=== PATIENT | male | born 1960 | race Caucasian/White ===

== ENCOUNTER 2018-09-10 08:48 | Outpatient (REF) | payer MEDICARE, SELFPAY ==
[2018-09-10 21:41] LABS: Iron 76 ug/dL (50-175); Total Iron Binding Capacity 269 ug/dL (250-450); Transferrin Sat 28 % (20-55)
[2018-09-10 22:09] LABS: ALT 156 U/L (12-78); AST 58 U/L (15-37); Alkaline Phosphatase 123 U/L (46-116); Bilirubin, Direct 0.21 mg/dL (0.00-0.20); Bilirubin, Total 0.9 mg/dL (0.2-1.0); Creatine Kinase 98 U/L (39-308); Total Protein 7.1 g/dL (6.4-8.2)
[2018-09-10 22:20] LABS: Cholesterol 172 mg/dL (50-200); GGT 272 U/L (15-85); HDL Cholesterol 25 mg/dL (40-60); LDL CHOLESTEROL 97 mg/dL (<100); Triglyceride 333 mg/dL (30-150)
[2018-09-12 11:34] LABS: Hepatitis B Surface Ag Negative (NEGAT)
[2018-09-12 12:40] LABS: Hepatitis A IgM Ab Negative (Negative)
== END 2018-09-10 09:08 ==
LOC: LBN 08:48
PROVIDERS: PCP Nurse Practitioner Family; Visit Provider Nurse Practitioner Family
DX: K76.0 Fatty (change of) liver, not elsewhere classified (principal); R74.8 Abnormal levels of other serum enzymes
CPT/HCPCS: 80061; 80076; 82550; 83721; 87340; 82977; 83540; 83550; 86709

== ENCOUNTER 2019-01-21 10:50 | Outpatient (REF) | payer MEDICARE, SELFPAY ==
[2019-01-21 19:59] LABS: ALT 58 U/L (12-78); AST 22 U/L (15-37); Albumin 4.2 g/dL (3.4-5.0); Alkaline Phosphatase 103 U/L (46-116); Anion Gap 7.6 mmol/L (3-11); BUN 11 mg/dL (7-18); Bilirubin, Direct 0.15 mg/dL (0.00-0.20); Bilirubin, Total 0.9 mg/dL (0.2-1.0); CO2 30.4 mmol/L (21.0-32.0); CREATININE 1.07 mg/dL (0.70-1.30); Calcium 9.8 mg/dL (8.5-10.1); Chloride 100 mmol/L (98-107); Glucose 154 mg/dL (70-100); Potassium 4.9 mmol/L (3.5-5.1); Sodium 138 mmol/L (136-145); Total Protein 7.2 g/dL (6.4-8.2)
== END 2019-01-21 11:10 ==
LOC: NCHCN 10:50
PROVIDERS: PCP Nurse Practitioner Family; Visit Provider Nurse Practitioner Family
DX: E11.9 Type 2 diabetes mellitus without complications (principal); K76.0 Fatty (change of) liver, not elsewhere classified; R74.8 Abnormal levels of other serum enzymes; K21.9 Gastro-esophageal reflux disease without esophagitis; I10 Essential (primary) hypertension
CPT/HCPCS: 80048; 80076

== ENCOUNTER 2019-08-12 11:50 | Outpatient (REF) | payer MEDICARE, SELFPAY ==
[2019-08-12 21:21] LABS: Calculated LDL 89 mg/dL; Cholesterol 163 mg/dL (50-200); HDL Cholesterol 28 mg/dL (40-60); Triglyceride 230 mg/dL (30-150)
== END 2019-08-12 12:10 ==
LOC: NCHCN 11:50
PROVIDERS: PCP Nurse Practitioner Family; Visit Provider Nurse Practitioner Family
DX: E78.5 Hyperlipidemia, unspecified (principal); E11.9 Type 2 diabetes mellitus without complications
CPT/HCPCS: 80061

== ENCOUNTER 2019-09-23 10:38 | Outpatient (REF) | payer MEDICARE, SELFPAY ==
[2019-09-23 22:12] LABS: ALT 39 U/L (16-63); AST 16 U/L (15-37); Albumin 4.2 g/dL (3.4-5.0); Alkaline Phosphatase 80 U/L (46-116); Bilirubin, Direct 0.14 mg/dL (0.00-0.20); Bilirubin, Total 0.6 mg/dL (0.2-1.0); Total Protein 7.3 g/dL (6.4-8.2)
[2019-09-23 22:57] LABS: Hemoglobin A1C 5.8 % (4.5-6.2)
== END 2019-09-23 10:58 ==
LOC: NCHCN 10:38
PROVIDERS: PCP Nurse Practitioner Family; Visit Provider Nurse Practitioner Family
DX: I10 Essential (primary) hypertension (principal); E11.9 Type 2 diabetes mellitus without complications; K76.0 Fatty (change of) liver, not elsewhere classified; R74.0 Nonspecific elevation of levels of transaminase and lactic acid dehydrogenase [LDH]
CPT/HCPCS: 80076; 83036

== ENCOUNTER 2019-10-08 01:11 | Outpatient (CLI) | payer MEDICARE, SELFPAY ==
--- NOTE | 2019-10-08 13:40 | DI.CTLCSR_ITS ---
EXAM: CT CHEST LUNG CANCER SCREEN CLINICAL HISTORY: CIGARETTE SMOKER, F17.210, [id number] HISTORY, CURRENT SMOKER TECHNIQUE: Low-dose lung noncontrast COMPARISON: No exams were available for comparison FINDINGS: The heart size is normal. Mild aortic and coronary artery calcifications are seen. There are no ple ural or pericardial effusions. There is no evidence of adenopathy. No pulmonary nodules are identif ied. There are no visible emphysematous or fibrotic changes. There is no evidence of bronchiectasis . Gallstones are noted. There is mild bilateral gynecomastia. Degenerative changes are seen in the spine. IMPRESSION: Lung rads category 1, negative. Annual low-dose screening CT is recommended. Lung RADS Cat 1 - Negative: No nodules and definitely benign nodules
== END 2019-10-08 01:31 ==
PROVIDERS: PCP Nurse Practitioner Family; Visit Provider Nurse Practitioner Family
DX: Z12.2 Encounter for screening for malignant neoplasm of respiratory organs (principal); F17.210 Nicotine dependence, cigarettes, uncomplicated; N62 Hypertrophy of breast
CPT/HCPCS: G0297

== ENCOUNTER 2019-11-25 08:49 | Outpatient (REF) | payer MEDICARE, SELFPAY ==
[2019-11-25 21:55] LABS: Calculated LDL 118 mg/dL (<100); Cholesterol 201 mg/dL (<200); HDL Cholesterol 25 mg/dL (40-60); Triglyceride 290 mg/dL (<150)
== END 2019-11-25 09:09 ==
LOC: NCHCN 08:49
PROVIDERS: PCP Nurse Practitioner Family; Visit Provider Nurse Practitioner Family
DX: E78.5 Hyperlipidemia, unspecified (principal); E11.9 Type 2 diabetes mellitus without complications; I10 Essential (primary) hypertension; R74.8 Abnormal levels of other serum enzymes
CPT/HCPCS: 80061

== ENCOUNTER 2019-12-02 11:40 | Outpatient (REF) | payer MEDICARE, SELFPAY ==
[2019-12-02 21:50] LABS: ALT 35 U/L (16-63); AST 13 U/L (15-37); Albumin 4.3 g/dL (3.4-5.0); Alkaline Phosphatase 71 U/L (46-116); Anion Gap 9.1 mmol/L (3-11); BUN 8 mg/dL (7-18); Bilirubin, Direct 0.13 mg/dL (0.00-0.20); Bilirubin, Total 0.7 mg/dL (0.2-1.0); CO2 29.9 mmol/L (21.0-32.0); CREATININE 1.08 mg/dL (0.70-1.30); Calcium 8.9 mg/dL (8.5-10.1); Chloride 101 mmol/L (98-107); Glucose 83 mg/dL (74-106); Potassium 3.9 mmol/L (3.5-5.1); Sodium 140 mmol/L (136-145); Total Protein 7.1 g/dL (6.4-8.2)
== END 2019-12-02 12:00 ==
LOC: NCHCN 11:40
PROVIDERS: PCP Nurse Practitioner Family; Visit Provider Nurse Practitioner Family
DX: I10 Essential (primary) hypertension (principal); K76.0 Fatty (change of) liver, not elsewhere classified
CPT/HCPCS: 80048; 80076

== ENCOUNTER 2020-01-13 10:49 | Outpatient (REF) | payer MEDICARE, SELFPAY ==
[2020-01-13 19:02] LABS: ALT 41 U/L (16-63); AST 20 U/L (15-37)
[2020-01-13 19:20] LABS: Calculated LDL 109 mg/dL (<100); Cholesterol 202 mg/dL (<200); HDL Cholesterol 27 mg/dL (40-60); Triglyceride 334 mg/dL (<150)
[2020-01-13 19:24] LABS: Bilirubin Negative (Negative); Blood Negative (Negative); Clarity Clear (Clear); Glucose Negative (Negative); Ketones Negative (Negative); Leukocyte Esterase Negative (Negative); Nitrite Negative (Negative); Urobilinogen 0.2 EU/dL (Up TO 0.2)
[2020-01-13 19:37] LABS: Bacteria Rare HPF (Negative); Crystals Negative HPF (Negative); Epithelial Cells Negative HPF (Negative); Other Cells Negative (Negative); RBC Negative HPF (0-2); WBC 0-2 HPF (0-5)
[2020-01-13 19:38] LABS: C & S Indicated? No; Casts Negative LPF (Negative); Mucus Trace (Negative)
== END 2020-01-13 11:09 ==
LOC: NCHCN 10:49
PROVIDERS: PCP Nurse Practitioner Family; Visit Provider Nurse Practitioner Family
DX: E78.5 Hyperlipidemia, unspecified (principal); R10.9 Unspecified abdominal pain
CPT/HCPCS: 80061; 81003; 81015; 84450; 84460

== ENCOUNTER → 2020-01-17 03:28 | Outpatient (CLI) | payer MEDICARE, SELFPAY ==
--- NOTE | 2020-01-17 08:45 | DI.CT_ITS ---
EXAM: CT RENAL COLIC WO CLINICAL HISTORY: ABD PAIN, R10.9 COMPARISON: ABDOMEN ULTRASOUND (P) from 02/12/2018 CT CHEST LUNG CANCER SCREEN from 10/08/2019 FINDINGS: CT examination of the abdomen and pelvis was performed without contrast administration. Images obtai roque through the lung bases are unremarkable. The liver appears mildly enlarged with a questionably n odular contour. There are prominent upper abdominal collateral veins raising the possibility cirrhos is and portal hypertension. Note is made of cholelithiasis. No biliary dilatation. Pancreas is unremarkable by noncontrast crit eria. Adrenals appear normal bilaterally. There is a 1 millimeter in diameter nonobstructing left renal ca lculus. No additional urinary tract calcification. No evidence of hydronephrosis. No significant abdominal wall hernia seen. No significant abdominal or pelvic adenopathy. There is a 30 millimeter in diameter abdominal aortic aneurysm, infrarenal. Common iliac arteries ar e ectatic bilaterally at 19 millimeters. Normal appearance of the appendix. No evidence of bowel obstruction. There is a question of a focal area of wall thickening at the hepatic flexure of the colon, findings are indeterminate but the poss ibility of a mucosal mass at this site would have to be raised and additional evaluation with colonos copy is recommended. IMPRESSION: 1. Tiny nonobstructing left renal calculus. No other urinary tract abnormality seen. 2. Probable cirrhosis and portal venous hypertension. 3. Cholelithiasis. 4. 30 millimeter in diameter abdominal aortic aneurysm. 5. Hepatic flexure colonic wall thickening, mass not excluded, correlation with colonoscopy recommen ded.
== END ==
PROVIDERS: PCP Nurse Practitioner Family; Visit Provider Nurse Practitioner Family
DX: R10.9 Unspecified abdominal pain (principal); N20.0 Calculus of kidney; K76.89 Other specified diseases of liver; K80.20 Calculus of gallbladder without cholecystitis without obstruction; I71.4 Abdominal aortic aneurysm, without rupture; K63.89 Other specified diseases of intestine
CPT/HCPCS: 74176

== ENCOUNTER 2020-03-20 12:44 | Outpatient (REF) | payer MEDICARE, SELFPAY ==
[2020-03-20 20:31] LABS: ALT 45 U/L (16-63); AST 19 U/L (15-37); Albumin 4.4 g/dL (3.4-5.0); Alkaline Phosphatase 74 U/L (46-116); Bilirubin, Total 0.7 mg/dL (0.2-1.0); Calculated LDL 88 mg/dL (<100); Cholesterol 161 mg/dL (<200); HDL Cholesterol 27 mg/dL (40-60); Total Protein 7.5 g/dL (6.4-8.2); Triglyceride 230 mg/dL (<150)
[2020-03-20 20:46] LABS: Bilirubin, Direct 0.14 mg/dL (0.00-0.20); Creatine Kinase 69 U/L (39-308)
== END 2020-03-20 13:04 ==
LOC: NCHCN 12:44
PROVIDERS: PCP Nurse Practitioner Family; Visit Provider Nurse Practitioner Family
DX: E78.5 Hyperlipidemia, unspecified (principal); K76.0 Fatty (change of) liver, not elsewhere classified
CPT/HCPCS: 80061; 80076; 82550

== ENCOUNTER 2020-07-01 08:01 | Outpatient (REF) | payer MEDICARE, SELFPAY ==
[2020-07-01 23:47] LABS: ALT 43 U/L (16-63); AST 22 U/L (15-37); Anion Gap 8.4 mmol/L (3-11); BUN 10 mg/dL (7-18); CO2 27.6 mmol/L (21.0-32.0); CREATININE 1.04 mg/dL (0.70-1.30); Calcium 9.1 mg/dL (8.5-10.1); Calculated LDL 96 mg/dL (<100); Chloride 105 mmol/L (98-107); Cholesterol 163 mg/dL (<200); Glucose 121 mg/dL (74-106); HDL Cholesterol 27 mg/dL (40-60); Potassium 4.3 mmol/L (3.5-5.1); Sodium 141 mmol/L (136-145); Triglyceride 203 mg/dL (<150)
== END 2020-07-01 08:21 ==
LOC: NCHCN 08:01
PROVIDERS: PCP Nurse Practitioner Family; Visit Provider Nurse Practitioner Family
DX: E78.5 Hyperlipidemia, unspecified (principal); I10 Essential (primary) hypertension
CPT/HCPCS: 80048; 80061; 84450; 84460

== ENCOUNTER 2020-09-30 10:55 | Outpatient (REF) | payer MEDICARE, SELFPAY ==
[2020-09-30 21:02] LABS: ALT 38 U/L (16-63); AST 21 U/L (15-37); Albumin 4.2 g/dL (3.4-5.0); Alkaline Phosphatase 70 U/L (46-116); Bilirubin, Direct 0.14 mg/dL (0.00-0.20); Bilirubin, Total 0.6 mg/dL (0.2-1.0); Total Protein 7.1 g/dL (6.4-8.2)
[2020-10-01 04:42] LABS: Vitamin D 25 Total 46.9 ng/ml (30-100)
== END 2020-09-30 11:15 ==
LOC: NCHCN 10:55
PROVIDERS: PCP Nurse Practitioner Family; Visit Provider Nurse Practitioner Family
DX: E11.9 Type 2 diabetes mellitus without complications (principal); R74.8 Abnormal levels of other serum enzymes; K76.9 Liver disease, unspecified
CPT/HCPCS: 80076; 82306; 84443

== ENCOUNTER 2020-11-04 05:30 | Outpatient (CLI) | payer MEDICARE, SELFPAY ==
--- NOTE | 2020-11-20 14:20 | W.ZIOMONITOR ---
Date of service: 11/20/20 Time of Service: 14:20 14 Day Business Development Sales Executive Referring Provider:: Nneka Chavarria Indications:: Palpitations Note: This is a 14-day Holter monitor reportedly ordered for symptoms of palpitations Baseline rhythm is sinus with a first-degree AV block average heart rate was 66 bpm. Minimum was 44 and maximum 106 There were rare ventricular ectopic beats There were occasional to frequent atrial premature beats comprising 1.44% of total There were several brief episodes of Mobitz 1 second-degree AV block (Wenckebach), all asymptomatic There were no pauses greater than 3 seconds, no atrial fibrillation Patient symptoms did not correspond to any dysrhythmia
== END 2020-11-04 05:50 ==
PROVIDERS: PCP Nurse Practitioner Family; Visit Provider Nurse Practitioner Family
DX: R00.2 Palpitations (principal)
CPT/HCPCS: 93246

== ENCOUNTER 2020-11-20 10:48 | Outpatient (CLI) | payer MEDICARE, SELFPAY | END 2020-11-20 11:08 | PROVIDERS: PCP Nurse Practitioner Family; Referring Provider Nurse Practitioner Family; Visit Provider Internal Medicine Cardiovascular Disease | DX: R00.2 Palpitations (principal); I44.0 Atrioventricular block, first degree; I49.1 Atrial premature depolarization | CPT/HCPCS: 93248 ==

== ENCOUNTER 2020-12-30 15:19 | Outpatient (REF) | payer MEDICARE, SELFPAY ==
[2020-12-30 15:53] LABS: Anion Gap 7.6 mmol/L (3-11); BUN 8 mg/dL (7-18); CO2 27.4 mmol/L (21.0-32.0); CREATININE 1.1 mg/dL (0.70-1.30); Calcium 9.1 mg/dL (8.5-10.1); Calculated LDL 74 mg/dL (<100); Chloride 104 mmol/L (98-107); Cholesterol 133 mg/dL (<200); Glucose 112 mg/dL (74-106); HDL Cholesterol 34 mg/dL (40-60); Potassium 4.4 mmol/L (3.5-5.1); Sodium 139 mmol/L (136-145); Triglyceride 127 mg/dL (<150)
== END 2020-12-30 15:20 | disposition home or self-care (01) ==
LOC: NCHCN 15:19
PROVIDERS: PCP Nurse Practitioner Family; Visit Provider Nurse Practitioner Family
DX: I10 Essential (primary) hypertension (principal); R78.5 Finding of other psychotropic drug in blood; Z79.899 Other long term (current) drug therapy
CPT/HCPCS: 80048; 80061

== ENCOUNTER → 2021-01-11 11:00 | Outpatient (BNVA) | payer MEDICARE, SELFPAY | PROVIDERS: PCP Nurse Practitioner Family; Referring Provider Nurse Practitioner Family; Visit Provider Internal Medicine Cardiovascular Disease | DX: R00.2 Palpitations (principal); F41.9 Anxiety disorder, unspecified | CPT/HCPCS: 93005; 99203 ==

== ENCOUNTER 2021-01-11 11:13 | Outpatient (CLI) | payer MEDICARE, SELFPAY ==
--- NOTE | 2021-01-11 11:00 | RT.EKG_ITS ---
APPROVED REPORT Exam: Resting ECG Patient Location: O HR:70 bpm ECG Measurements Heart Rate 70 AXIS GA 289 P 34 QRSd 87 QRS 52 QT 388 T 38 QTc 419 Conclusion Sinus rhythm...normal P axis, V-rate 50- 99 Prolonged GA interval...GA >220, V-rate 50- 90
== END 2021-01-11 11:14 | disposition home or self-care (01) ==
LOC: DI.CARD 11:13
PROVIDERS: PCP Nurse Practitioner Family; Visit Provider Internal Medicine Cardiovascular Disease
DX: R00.2 Palpitations (principal)
CPT/HCPCS: 93010

== ENCOUNTER → 2021-10-14 01:41 | Outpatient (CLI) | payer MEDICARE, SELFPAY ==
--- NOTE | 2021-10-14 08:30 | DI.RAD_ITS ---
Exam(s) XR LUMBAR SPINE COMPLETE EXAM: XR LUMBAR SPINE COMPLETE CLINICAL HISTORY: ACUTE LOW BACK PAIN M54.5. TECHNIQUE: 2D digital imaging was performed. COMPARISON: No exams were available for comparison FINDINGS: There is no evidence of compression fracture or listhesis. No pars defects. There is disc space carlos enrique rowing at L5-S1 level, chronic appearance. Mild disc space narrowing at L4-5 and L3-4. No osseous l esions. Minimal facet findings. Calcification in the abdominal aorta noted. No scoliosis. IMPRESSION: Disc disease as described above, most evident at L5-S1 level. DATA REPOSITORY: RADIATION DOSE DELIVERED:
--- NOTE | 2021-10-14 08:30 | DI.RAD_ITS ---
Exam(s) XR SACROILIAC JOINTS EXAM: XR SACROILIAC JOINTS CLINICAL HISTORY: ACUTE LOW BACK PAIN M54.5. TECHNIQUE: 2D digital imaging was performed. COMPARISON: CR XR LUMBAR SPINE COMPLETE from 10/14/2021 FINDINGS: Sacroiliac joints appear [id number]. Minimal degenerative changes. No erosions. No ank ylosis. No osseous lesions in the sacrum. Chronic advanced disc space narrowing is evident at L5-S1 level. Milder disc space narrowing at L3-4 and L4-5. No osseous lesions. Vascular calcification in the abdominal aorta and iliac arteries is noted. IMPRESSION: DATA REPOSITORY: RADIATION DOSE DELIVERED:
== END ==
PROVIDERS: PCP Nurse Practitioner Family; Visit Provider Nurse Practitioner Family
DX: M54.59 Other low back pain (principal); M51.37 Other intervertebral disc degeneration, lumbosacral region
CPT/HCPCS: 72110; 72202

== ENCOUNTER → 2021-12-14 00:43 | Outpatient (CLI) | payer OTHER, SELFPAY ==
--- NOTE | 2021-12-14 08:40 | DI.CTLCSR_ITS ---
Exam(s) CT CHEST LUNG CANCER SCREEN EXAM: CT CHEST LUNG CANCER SCREEN CLINICAL HISTORY: SCREENING FOR LUNG CA, CIGARETTE SMOKER, F17.210. TECHNIQUE: Imaging Protocol: Low Dose Technique CONTRAST MATERIAL: None COMPARISON: CT CT CHEST LUNG CANCER SCREEN from 10/08/2019 FINDINGS: CHEST: LUNGS: There are no ominous pulmonary nodules. There are no confluent infiltrates. No pleural effusi ons. Mild mucus is noted in the central airways. MEDIASTINUM: There is no obvious hilar nor mediastinal adenopathy. CARDIAC: Heart size is normal. There is no pericardial effusion.Caliber of the thoracic aorta is wit hin normal limits. Mild coronary artery calcification. OTHER: No obvious adrenal masses. Gallbladder again noted to be surgically absent. OSSEOUS: No significant osseous lesions.. IMPRESSION: 1. No significant pulmonary nodules. No pleural effusions. 2. No obvious intrathoracic adenopathy. 3. Lung RADS Cat 1 - Negative: No nodules and definitely benign nodules Lung-RADS 1.0 CATEGORIES: Category 0 - Prior chest CT exam(s) being located for comparison. Category 1 - Annual screening in 12 months. No nodules or definitely benign nodules. Category 2 - Annual screening in 12 months. Benign appearance. Nodules with low likelihood of becomin g active cancer. Category 3 - 6-month follow-up. Probably benign. Short-term follow-up suggested. Nodules with low lik elihood of becoming active cancer. Category 4A - 3-month follow-up and CT/PET if >8 mm in size. Suspicious finding. Findings which requi re additional testing. Category 4B - Findings which require additional testing and tissue sampling. Category 4X - Category 3 or 4 nodules with additional features or imaging findings that increases the suspicion of malignancy. Modifier S- Potentially clinically significant findings (non lung cancer) RADIATION DOSE DELIVERED: 85.99mGy.cm Total DLP CTDIvol DATA REPOSITORY: All CT scans at this facility are submitted to the National Radiology Data Registry (NRDR) Dose Index Registry (DIR) with the [employer] (ACR). RADIATION OPTIMIZATION: All CT scans at this facility use at least one of these dose optimization te chniques: automated exposure control; mA and/or kV adjustment per patient size (includes targeted exa ms where dose is matched to clinical indication); or iterative reconstruction.
== END ==
PROVIDERS: PCP Nurse Practitioner Family; Visit Provider Nurse Practitioner Family
DX: Z12.2 Encounter for screening for malignant neoplasm of respiratory organs (principal); F17.210 Nicotine dependence, cigarettes, uncomplicated
CPT/HCPCS: 71271

== ENCOUNTER 2022-01-10 12:43 | Outpatient (REF) | payer OTHER, SELFPAY ==
[2022-01-10 13:25] LABS: HCT 44.5 % (40.0-50.0); HGB 14.5 g/dL (13.5-17.5); MCH 30.7 pg (27.0-33.0); MCHC 32.6 % (32.0-36.0); MCV 94.3 fL (80-95); MPV 9.8 fL (8.0-11.0); Platelet Count 295 10^3/uL (130-400); RBC 4.72 10^6/uL (4.36-5.78); RDW 12.5 % (11.8-14.1); RDW-SD 43.8 fL; WBC 15.61 10^3/uL (4.4-10.8)
[2022-01-10 13:41] LABS: ALT 46 U/L (16-63); AST 21 U/L (15-37); Anion Gap 10.7 mmol/L (3-11); BUN 13 mg/dL (7-18); CO2 25.3 mmol/L (21.0-32.0); CREATININE 1.3 mg/dL (0.70-1.30); Calculated LDL 109 mg/dL (<100); Chloride 102 mmol/L (98-107); Cholesterol 187 mg/dL (<200); Estimated GFR 55.94 (mL/min/1.73m2); Glucose 117 mg/dL (74-106); HDL Cholesterol 29 mg/dL (40-60); Sodium 138 mmol/L (136-145); Triglyceride 249 mg/dL (<150)
[2022-01-10 13:53] LABS: Creatine Kinase 100 U/L (39-308)
== END 2022-01-10 12:44 | disposition home or self-care (01) ==
LOC: NCHCN 12:43
PROVIDERS: PCP Nurse Practitioner Family; Visit Provider Nurse Practitioner Family
DX: E11.9 Type 2 diabetes mellitus without complications (principal); I10 Essential (primary) hypertension; E78.5 Hyperlipidemia, unspecified; K21.9 Gastro-esophageal reflux disease without esophagitis; F41.1 Generalized anxiety disorder; Z51.81 Encounter for therapeutic drug level monitoring
CPT/HCPCS: 80048; 80061; 82550; 85027; 83036; 84450; 84460

== ENCOUNTER 2022-03-16 09:24 | Outpatient (REF) | payer OTHER, SELFPAY ==
[2022-03-16 17:23] LABS: Abs Immature Grans 0.09 10^3/uL (0.0-0.06); Absolute Basophil Count 0.08 10^3/uL (0.0-0.2); Absolute Eosinophil Count 0.48 10^3/uL (0.0-0.7); Absolute Lymphocyte Count 4.75 10^3/uL (1.2-3.4); Basophils % 0.6; Eosinophils % 3.4; HCT 43.2 % (40.0-50.0); Immature Grans % 0.6; Lymphocytes % 33.7; MCH 30.7 pg (27.0-33.0); MCHC 32.4 % (32.0-36.0); MCV 95 fL (80-95); MPV 9.9 fL (8.0-11.0); Monocytes % 8.5; Neutrophils % 53.2; Platelet Count 289 10^3/uL (130-400); RBC 4.56 10^6/uL (4.36-5.78); RDW 12.8 % (11.8-14.1); RDW-SD 44.8 fL; WBC 14.09 10^3/uL (4.4-10.8)
== END 2022-03-16 09:25 | disposition home or self-care (01) ==
LOC: NCHCN 09:24
PROVIDERS: PCP Nurse Practitioner Family; Visit Provider Nurse Practitioner Family
DX: R89.8 Other abnormal findings in specimens from other organs, systems and tissues
CPT/HCPCS: 85025

== ENCOUNTER 2023-01-18 11:50 | Outpatient (REF) | payer OTHER, SELFPAY ==
[2023-01-19 16:25] LABS: ALT 30 U/L (16-63); AST 15 U/L (15-37); Albumin 4.1 g/dL (3.4-5.0); Alkaline Phosphatase 79 U/L (46-116); Anion Gap 9.2 mmol/L (3-11); BUN 13 mg/dL (7-18); Bilirubin, Total 0.5 mg/dL (0.2-1.0); CO2 25.8 mmol/L (21.0-32.0); CREATININE 1.4 mg/dL (0.70-1.30); Calcium 9.2 mg/dL (8.5-10.1); Calculated LDL 96 mg/dL (<100); Chloride 100 mmol/L (98-107); Cholesterol 187 mg/dL (<200); Estimated GFR 56.48 (mL/min/1.73m2); Glucose 136 mg/dL (74-106); HDL Cholesterol 33 mg/dL (40-60); Potassium 4.1 mmol/L (3.5-5.1); Sodium 135 mmol/L (136-145); Total Protein 7.4 g/dL (6.4-8.2); Triglyceride 293 mg/dL (<150)
[2023-01-19 16:51] LABS: Creatine Kinase 73 U/L (39-308)
== END 2023-01-18 11:51 | disposition home or self-care (01) ==
LOC: NCHCN 11:50
PROVIDERS: PCP Nurse Practitioner Family; Visit Provider Nurse Practitioner Family
DX: E11.9 Type 2 diabetes mellitus without complications (principal); E78.5 Hyperlipidemia, unspecified
CPT/HCPCS: 80053; 80061; 82550; 83036

== ENCOUNTER 2023-02-06 00:18 | Outpatient (CLI) | payer OTHER, SELFPAY ==
--- NOTE | 2023-02-06 | DI.CTLCSR_ITS ---
Exam(s) CT CHEST LUNG CANCER SCREEN EXAM: CT CHEST LUNG CANCER SCREEN CLINICAL HISTORY: SMOKER F17.210 SCREENING FOR LUNG CANCER TECHNIQUE: Imaging Protocol: Axial computed tomography images with coronal and sagittal reformatted images were created and reviewed COMPARISON: CT CT CHEST LUNG CANCER SCREEN from 12/14/2021 FINDINGS: Tracheobronchial tree: Patent where visualized. Pulmonary parenchyma: No consolidation or dominant measurable mass. No architectural distortion. Lung Nodules: None. Mediastinum and Chanda: No dominant adenopathy or fluid collection. The esophagus is unremarkable. Thyroid gland: Unremarkable. Lymph nodes: Unremarkable. Pleura: No effusion or pneumothorax. Heart: The heart is not dilated. Moderate coronary artery calcification is present. No pericardial e ffusion. Aorta: Thoracic aorta non-dilated.Atherosclerosis is present. Upper abdomen: Cholelithiasis. No biliary ductal dilatation. Soft Tissues: Unremarkable. Bones: Within normal limits. IMPRESSION: 1. No pulmonary nodules. 2. Cholelithiasis. Lung RADS Cat 1 - Negative: No nodules and definitely benign nodules Lung-RADS 1.0 CATEGORIES: Category 0 - Prior chest CT exam(s) being located for comparison. Category 1 - Annual screening in 12 months. No nodules or definitely benign nodules. Category 2 - Annual screening in 12 months. Benign appearance. Nodules with low likelihood of becomin g active cancer. Category 3 - 6-month follow-up. Probably benign. Short-term follow-up suggested. Nodules with low lik elihood of becoming active cancer. Category 4A - 3-month follow-up and CT/PET if >8 mm in size. Suspicious finding. Findings which requi re additional testing. Category 4B - Findings which require additional testing and tissue sampling. Suspicious finding. Category 4X - Category 3 or 4 nodules with additional features or imaging findings that increases the suspicion of malignancy. Modifier S- Potentially clinically significant finding. (Non lung cancer) RADIATION DOSE DELIVERED: 99.19mGy.cm Total DLP 99.19mGy.cmTotal DLP DATA REPOSITORY: All CT scans at this facility are submitted to the National Radiology Data Registry (NRDR) Dose Index Registry (DIR) with the [employer] (ACR). RADIATION OPTIMIZATION: All CT scans at this facility use at least one of these dose optimization te chniques: automated exposure control; mA and/or kV adjustment per patient size (includes targeted exa ms where dose is matched to clinical indication); or iterative reconstruction.
== END 2023-02-06 00:38 ==
LOC: DI 00:18
PROVIDERS: PCP Nurse Practitioner Family; Visit Provider Nurse Practitioner Family
DX: F17.210 Nicotine dependence, cigarettes, uncomplicated (principal); Z12.2 Encounter for screening for malignant neoplasm of respiratory organs; K80.20 Calculus of gallbladder without cholecystitis without obstruction
CPT/HCPCS: 71271

== ENCOUNTER 2023-02-14 17:01 | Outpatient (REF) | payer OTHER, SELFPAY ==
[2023-02-14 16:05] LABS: HCT 44.2 % (40.0-50.0); HGB 15.2 g/dL (13.5-17.5); MCH 30.4 pg (27.0-33.0); MCHC 34.4 % (32.0-36.0); MCV 88 fL (80-95); MPV 9.3 fL (8.0-11.0); Platelet Count 281 10^3/uL (130-400); RDW 12.6 % (11.8-14.1); RDW-SD 40.6 fL; WBC 14.61 10^3/uL (4.4-10.8)
[2023-02-14 16:18] LABS: ALT 28 U/L (16-63); AST 23 U/L (15-37); Albumin 4.2 g/dL (3.4-5.0); Alkaline Phosphatase 71 U/L (46-116); Anion Gap 7.9 mmol/L (3-11); BUN 15 mg/dL (7-18); Bilirubin, Total 1.1 mg/dL (0.2-1.0); CO2 28.1 mmol/L (21.0-32.0); CREATININE 1.4 mg/dL (0.70-1.30); Chloride 103 mmol/L (98-107); Estimated GFR 56.48 (mL/min/1.73m2); Glucose 130 mg/dL (74-106); Lipase 46 U/L (16-77); Potassium 3.7 mmol/L (3.5-5.1); Sodium 139 mmol/L (136-145); Total Protein 7.8 g/dL (6.4-8.2)
[2023-02-14 16:31] LABS: Calcium 9.6 mg/dL (8.5-10.1)
== END 2023-02-14 17:02 | disposition home or self-care (01) ==
LOC: NCHCN 17:01
PROVIDERS: PCP Nurse Practitioner Family; Visit Provider Nurse Practitioner Family
DX: R10.13 Epigastric pain (principal); K62.5 Hemorrhage of anus and rectum
CPT/HCPCS: 80053; 83690; 85027

== ENCOUNTER → 2023-02-27 09:32 | Outpatient (BNVA) | payer OTHER, SELFPAY | PROVIDERS: PCP Nurse Practitioner Family; Referring Provider Nurse Practitioner Family; Visit Provider Surgery | DX: K21.9 Gastro-esophageal reflux disease without esophagitis (principal); R13.10 Dysphagia, unspecified; K62.5 Hemorrhage of anus and rectum | CPT/HCPCS: 99215; 99243 ==

== ENCOUNTER 2023-04-03 06:09 | Day surgery (SDC) | payer OTHER, SELFPAY ==
--- NOTE | 2023-03-27 19:27 | PDOC.DSDIS_ITS ---
Discharge Plan Disposition Patient Disposition: Home Condition: Good Discharge Details Reason For Visit: sarthak hurtado Attending Provider: Teresa Real Primary Care Provider: Nneka Chavarria Home Meds and New Rx's Prescriptions: Continued Digestive Advantage Advanced 10 billion cell capsule 10 cell PO DAILY apple cider vinegar 600 mg capsule 600 mg PO DAILY atorvastatin [Lipitor] 80 mg tablet 80 mg PO DAILY fenofibrate nanocrystallized [Tricor] 48 mg tablet 48 mg PO DAILY clonidine HCl 0.1 mg tablet 0.1 mg PO BID alprazolam 0.5 mg tablet 0.5 mg PO TID fluoxetine 40 mg capsule 40 mg PO DAILY lurasidone [Latuda] 60 mg tablet 60 mg PO DAILY Rx Instructions: must administer with food (at least 350 calories) esomeprazole magnesium [Nexium] 40 mg capsule,delayed release(DR/EC) 40 mg PO DAILY Discontinued polyethylene glycol 3350 17 gram/dose powder 238 g PO ONCE Qty: 238 0RF Rx Instructions: take per colonoscopy instructions bisacodyl [Dulcolax (bisacodyl)] 5 mg tablet,delayed release (DR/EC) 5 mg PO ONCE Qty: 4 0RF Rx Instructions: take per colonoscopy instructions Discharge Instructions Additional Instructions: DSU Colonoscopy Post- Op Instructions Instructions for Everyone who is given Anesthesia: For your safety, please do the following for the next twenty-four (24) hours: *Do Not operate a motor vehicle (car, truck, motorcycle, etc.) *Do Not drink alcoholic beverages or use any recreational drugs for the first 24 hours or while taking pain medications. The medications in your body may have a reaction that can be dangerous. *Do Not make any important decisions or sign any important papers. Findings: Follow up: 1. No lifting over 20 pounds or strenuous activity for the first 24 hours after your procedure. After 24 hours there are no restrictions on your activity but you may feel fatigued for a few days. 2. After you arrive home you may have a light meal and return to your normal diet as you can tolerate it without feeling sick to your stomach. 3. You may have a bloated, gaseous feeling in your belly (abdomen) after a colonoscopy. Passing gas and belching will help. Walking or lying down on your left side with your knees flexed may relieve the discomfort. -Symptoms you may experience during the next 24 hours: ?1. Mild abdominal pain or excessive gas or a bloated feeling which improves with rest, liquids, eating? slightly, and walking as tolerated. 2. Drowsiness and/or forgetfulness because of the medications you were given. ?3. Throat numbness for about 1 hour. 4. A sore throat which you can treat with throat lozenges or by gargling with salt water 4-5 times a day. 5. Redness at the site of your IV which you can treat with warm compresses. SPECIAL INSTRUCTIONS: 1. You may resume your previous diet in one hour. We recommend a light meal to start, then progress as tolerated. 2. Restart regular medications in one hour. 3. No aspirin or non-steroidal containing medication for three days. 4. No lifting over 20 pounds or strenuous activity for the first 24 hours after your procedure. After 24 hours there are no restrictions on your activity, but you may feel fatigued for a few days. Call the office at [phone] (Office) or [phone] (Hospital) right away if you notice any of the following: a.Vomiting of blood or ?coffee ground stools?. b.Rectal bleeding 1Tbsp, blood clots or continuous bleeding. c.Severe belly (abdominal) pain. d.A hard distended belly (abdomen) and an inability to pass gas. 4. Please don?t expect to have a normal BM (bowel movement) for 2-3 days after your procedure. 5. If there are questions regarding the findings of your procedure, please contact your doctor 6. If you are unable to contact your doctor with a problem, contact the hospital at [phone]. 7. Continue all your regular medications unless directed otherwise. I understand the above instructions and have no questions. Signature of Patient or Adult Escort Name of Responsible Adult Escort Signature of Nurse Date/Time Activity:: see above Diet:: see above Discharge Orders Discharge Orders: Discharge Order (Routine); Ordered 03/28/23 Ordered By: Teresa Real DS: Diagnosis Discharge Diagnosis (1) Epigastric pain: Status: Acute Asessment and Plan: Patient is seen and examined after they are endoscopy.? Patient has minimal sore throat.? They have been able to tolerate liquids.? They do not have any nausea vomiting.? They are not having any chest pain or shortness of breath.? They have been able to pass gas and are not having any abdominal pain or distention.? They have not vomited any blood.? The vital signs have been stable-see nursing notes. We discussed findings on their endoscopy. We reviewed the importance of lifestyle modification-see discharge instructions We reviewed any new medications that the patient may be prescribed-see discharge instructions Patient will either be sent a letter with the biopsy results or follow-up in the office-see discharge instructions. Patient was given explicit instructions to follow-up regarding post endoscopy- refer to discharge Patient verbalized understanding and discharged in stable and satisfactory condition.? See nursing notes. (2) Rectal bleeding: Status: Acute (3) GERD (gastroesophageal reflux disease): Status: Chronic (4) H/O: HTN (hypertension): (5) History of alcoholism: (6) Hyperlipidemia: (7) Mobitz type 1 second degree AV block: (8) Steatosis of liver: (9) Type 2 diabetes mellitus:
[2023-04-03 06:23] VITALS: BP 140/75; PULSE 76; RESP 18; TEMP 36.3; O2SAT 98
[2023-04-03] MEDS: Lactated Ringers 1,000 ML 80 ML IV (06:39)
--- NOTE | 2023-04-03 07:04 | W.ANESPRE ---
General Info Date of Service Date Performed: 04/03/23 Height: 6 ft Weight: 99.79 kg Body Mass Index (BMI): 29.8 Surgical Procedure: Operation Date: 04/03/23 07:40 Proposed Procedure Side Surgeon p Colonoscopy/Gastroscopy Edinson Patel MD s Internal Hemorrhoid Banding Edinson Patel MD Actual Procedure Side Surgeon p Colonoscopy/Gastroscopy Edinson Patel MD s Internal Hemorrhoid Banding Edinson Patel MD Pre-Op Diagnosis Post-Op Diagnosis stoomach and colon stope Meds Allergies and Home Medications Allergies Allergy/AdvReac Type Severity Reaction Status Date / Time brexpiprazole [From Rexulti] Allergy Severe Psychosis Verified 04/03/23 07:22 Glucophage XR Allergy Intermediate Uncoded 04/03/23 06:19 Home Medication Medication Instructions Recorded alprazolam 0.5 mg tablet 0.5 mg PO TID 12/02/20 atorvastatin 80 mg tablet (Lipitor) 80 mg PO DAILY 12/02/20 clonidine HCl 0.1 mg tablet 0.1 mg PO BID 12/02/20 fenofibrate nanocrystallized 48 mg 48 mg PO DAILY 12/02/20 tablet (Tricor) fluoxetine 40 mg capsule 40 mg PO DAILY 12/02/20 lurasidone 60 mg tablet (Latuda) 60 mg PO DAILY 02/24/23 L.acidoph, paracasei,B. lactis 10 10 cell PO DAILY 02/27/23 billion cell capsule (Digestive Advantage Advanced Probiotic) apple cider vinegar 600 mg capsule 600 mg PO DAILY 02/27/23 esomeprazole magnesium 40 mg mg 04/03/23 capsule,delayed release (Nexium) Current Visit Medications: Current Medications Generic Name Dose Route Start Last Admin Trade Name Freq PRN Reason Stop Dose Admin Hyoscyamine Sulfate 0.125 mg 03/28/23 07:20 Hyoscyamine 0.125 Mg Sl/Oral/Chew SL 04/27/23 07:19 DIRECTED PRN Ringer's Solution 1,000 mls @ 80 mls/hr 03/28/23 06:00 04/03/23 06:39 IV 04/23/23 23:59 80 mls/hr INFUSION LELE Administration Ringer's Solution 1,000 mls @ 80 mls/hr 04/03/23 06:00 IV 04/30/23 23:59 INFUSION LELE IV Miscellaneous Supplies 1 each 03/28/23 06:00 Iv Access IV 04/23/23 23:59 DIRECTED [facility] IV Miscellaneous Supplies 1 each 04/03/23 06:00 Iv Access IV 04/30/23 23:59 DIRECTED [facility] Ondansetron HCl 4 mg 03/28/23 07:20 Ondansetron 4 Mg/2 Ml Vial IVP 04/27/23 07:19 Q4H PRN PRN Nausea / Vomiting Sodium Chloride 0 ml 03/28/23 06:00 Normal Saline Flush 10 Ml Syr IV 04/23/23 23:59 PRN PRN Sodium Chloride 0 ml 03/28/23 06:00 Normal Saline 10 Ml Vial IJ 04/23/23 23:59 DIRECTED PRN Sodium Chloride 0 ml 04/03/23 06:00 Normal Saline Flush 10 Ml Syr IV 04/30/23 23:59 PRN PRN Sodium Chloride 0 ml 04/03/23 06:00 Normal Saline 10 Ml Vial IJ 04/30/23 23:59 DIRECTED PRN Sterile Water 0 ml 03/28/23 06:00 Water,Injection,Sterile 10 Ml Vial IJ 04/23/23 23:59 DIRECTED PRN Sterile Water 0 ml 04/03/23 06:00 Water,Injection,Sterile 10 Ml Vial IJ 04/30/23 23:59 DIRECTED PRN PFSH Active Problems Active Problems: Problem Status Onset Code Palpitations R00.2 Epigastric pain R10.13 Rectal bleeding K62.5 GERD (gastroesophageal reflux disease) K21.9 Atherosclerosis of aorta I70.0 Gallstones K80.20 Hepatomegaly R16.0 Leukocytosis (leucocytosis) D72.829 Medical History Medical History AAA (abdominal aortic aneurysm) [facility] [place] is a AAA Duplex, that was noted: small infrarenal abdominal aortic aneurysm, seen on CT December 2019 (3.1cm) this was 3.0 x 2.9cm. Pt. 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 Elevated liver enzymes SALLIE (generalized anxiety disorder) H/O: HTN (hypertension) History of alcoholism History of palpitations Hyperlipidemia Mobitz type 1 second degree AV block Pilonidal cyst with abscess Steatosis of liver Type 2 diabetes mellitus Tobacco Smoking/Tobacco Use Status: Current every day Tobacco Type: cigarettes Alcohol Alcohol Intake: former Substance Use Substance use: Never Substance use type: does not use Vital Signs and Lab Results Vital Signs Most Recent Vital Signs in EMR: Most Recent Vital Signs Temp Pulse Resp BP Pulse Ox 36.3 C L 76 18 140/75 98 04/03/23 06:23 04/03/23 06:23 04/03/23 06:23 04/03/23 06:23 04/03/23 06:23 Lab Results Blood Type / Crossmatch: No Data to Display Complete Blood Count: No Data to Display Complete Metabolic Panel: No Data to Display Liver Function Panel: No Data to Display Coagulation Panel: No Data to Display Cardiac Panel: No Data to Display Arterial Blood Gas: No Data to Display Venous Blood Gas: No Data to Display Pancreas Panel: No Data to Display Thyroid Panel: No Data to Display Infectious Disease: No Data to Display Blood Cultures: No Data to Display Toxicology Panel: No Data to Display Imaging and Studies Imaging and Studies Study information below may be from another EMR and interpreted by another provider. Please see original notes in EMR for more complete details. EKG Summary: EKG PATIENT NAME: LOY NASH #: [id number] ORDERING PROVIDER: Berto Garcia M.D. PRIMARY CARE PROVIDER:VIPIN MARTINEZ NP DATE/TIME OF SERVICE: 01/11/21 1021 : 1960PERFORMING LOCATION: .CARD APPROVED REPORT Exam: Resting ECG Patient Location: O HR:70 bpm ECG Measurements Heart Rate 70 AXIS PA 289 P 34 QRSd 87 QRS 52 QT 388 T38 QTc 419 Conclusion Sinus rhythm...normal P axis, V-rate 50- 99 Prolonged PA interval...PA >220, V-rate 50- 90 <Electronically signed by BERTO GARCIA MD in OV> E-Sign Date: 01/11/21 E-Sign Time: 1213 Anesthesia Assessment and Plan Anesthesia History Personal History: No History of Anesthesia Complications Family History: No Family History of Anesthesia Complications Exercise Tolerance Exercise Tolerance: Metabolic Equivalents>4 Pertinent Negatives Pertinent Negatives: No Symptoms of GERD and No History of CVA/TIA Cardiac & Pulmonary Exam Cardiac Exam: Normal S1/S2 Heart Sounds Pulmonary Exam: Clear Bilateral Breath Sounds Implantable Cardiac Device Does patient have a Pacemaker or an ICD?: No Airway Exam Known Difficult Airway: No Mallampati Class: 2 Mouth Opening: Normal (> 3cm) Thyromental Distance: Greater than 3 cm Neck Range of Motion: Full ROM Neck Circumference: Normal Teeth Condition: Normal Dentition ASA Classification ASA Score: ASA 2 Emergency Case?: No NPO Status NPO Status: NPO Clears >2 hours, Solids >8 hours Anesthesia Plan Resuscitation Status: Full Code Anesthesia Technique: General Anesthesia Airway Planned: Natural Airway Monitors Used: Standard Monitors
--- NOTE | 2023-04-03 07:14 | HPE_ITS ---
Assessment and Plan Assessment and plan (1) Rectal bleeding: Status: Acute Assessment and plan: We discussed the risks and benefits of EGD as well as colonoscopy today. Given his history, I think it is reasonable to proceed with the EGD, and I anticipate random biopsies of the duodenum and stomach to help further elucidate any source of his dyspepsia. We will also proceed with colonoscopy. Since his hematochezia has improved, I explained that there may be a role for hemorrhoid banding, but if the hemorrhoids are quite small, that would not be indicated at this time. History of Present Illness History of Present Illness Chief Complaint: Dyspepsia and globus sensation with occasional hematochezia Narrative: Inocencio is 62 years old, he was seen in our office just about a month ago. At that time, he described upper abdominal discomfort when eating. He also had a sense of incomplete swallowing. He was started on Nexium, and has had some relief of his symptoms. He does still have some occasional dyspepsia. Additionally, he described a history of anal fissures and perhaps hemorrhoids. He described intermittent hematochezia, with blood on the toilet paper. He has never had a colonoscopy before. Since the time of his office visit, most of the symptoms have also resolved. He denies any family history of colon or rectal cancers [facility] All Active Problems Palpitations (Acute) Epigastric pain (Acute) Rectal bleeding (Acute) GERD (gastroesophageal reflux disease) (Chronic) Atherosclerosis of aorta (Acute) Gallstones (Acute) Hepatomegaly (Acute) Leukocytosis (leucocytosis) (Acute) Medical History [place]dominal [place] [facility] [place] Duplex, that was noted: small infrarenal abdominal aortic aneurysm, seen on CT December 2019 (3.1cm) this was 3.0 x 2.9cm. Pt. 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 Elevated liver enzymes SALLIE (generalized anxiety disorder) H/O: HTN (hypertension) History of alcoholism History of palpitations Hyperlipidemia Mobitz type 1 second degree AV block Pilonidal cyst with abscess Steatosis of liver Type 2 diabetes mellitus Social History Smoking/Tobacco Use Status: Current every day Tobacco Type: cigarettes Smoking risk assessment performed?: Yes Alcohol Intake: former Drug use: Never Substance use type: does not use Do you feel safe at home: Yes Do you feel safe in your relationship?: Yes Meds Allergies and Home Medications Allergies Allergy/AdvReac Type Severity Reaction Status Date / Time brexpiprazole [From Rexulti] Allergy Severe Verified 04/03/23 06:19 Glucophage XR Allergy Intermediate Uncoded 04/03/23 06:19 Home Medications Medication Instructions Recorded Confirmed Type alprazolam 0.5 mg tablet 0.5 mg PO TID 12/02/20 04/03/23 History atorvastatin 80 mg tablet (Lipitor) 80 mg PO DAILY 12/02/20 04/03/23 History clonidine HCl 0.1 mg tablet 0.1 mg PO BID 12/02/20 04/03/23 History fenofibrate nanocrystallized 48 mg 48 mg PO DAILY 12/02/20 04/03/23 History tablet (Tricor) fluoxetine 40 mg capsule 40 mg PO DAILY 12/02/20 04/03/23 History lurasidone 60 mg tablet (Latuda) 60 mg PO DAILY 02/24/23 04/03/23 History L.acidoph, paracasei,B. lactis 10 10 cell PO DAILY 02/27/23 04/03/23 History billion cell capsule (Digestive Advantage Advanced Probiotic) apple cider vinegar 600 mg capsule 600 mg PO DAILY 02/27/23 04/03/23 History bisacodyl 5 mg tablet,delayed 5 mg PO ONCE colonscopy bowel prep 03/28/23 04/03/23 Rx release (Dulcolax (bisacodyl)) #4 tabs polyethylene glycol 3350 17 238 g PO ONCE colonoscopy prep 03/28/23 04/03/23 Rx gram/dose oral powder #238 grams esomeprazole magnesium 40 mg mg 04/03/23 History capsule,delayed release (Nexium) Exam Resp Auscultation: clear to auscultation bilaterally Cardio Rate: regular rate Rhythm: regular rhythm Heart Sounds: S1 normal and S2 normal GI Palpation: soft and nontender Percussion: normal to percussion Results Last Vital Signs Temp 97.3 F L 04/03/23 06:23 Pulse 76 06/05/23 06:23 Resp 18 04/03/23 06:23 BP 140/75 04/03/23 06:23 Pulse Ox 98 04/03/23 06:23
--- NOTE | 2023-04-03 07:18 | W.PM.DSUDISC ---
Date of service: 04/03/23 Time of Service: 07:18 Discharge Plan Disposition Patient Disposition: Home Condition: Good Discharge Details Reason For Visit: sarthak hurtado Attending Provider: Edinson Patel Primary Care Provider: Nneka Chavarria Home Meds and New Rx's Prescriptions: Continued Digestive Advantage Advanced 10 billion cell capsule 10 cell PO DAILY apple cider vinegar 600 mg capsule 600 mg PO DAILY atorvastatin [Lipitor] 80 mg tablet 80 mg PO DAILY fenofibrate nanocrystallized [Tricor] 48 mg tablet 48 mg PO DAILY clonidine HCl 0.1 mg tablet 0.1 mg PO BID alprazolam 0.5 mg tablet 0.5 mg PO TID fluoxetine 40 mg capsule 40 mg PO DAILY lurasidone [Latuda] 60 mg tablet 60 mg PO DAILY Rx Instructions: must administer with food (at least 350 calories) esomeprazole magnesium [Nexium] 40 mg capsule,delayed release(DR/EC) Patient Comments: Take 1 capsule by mouth once a day Discontinued polyethylene glycol 3350 17 gram/dose powder 238 g PO ONCE Qty: 238 0RF Rx Instructions: take per colonoscopy instructions bisacodyl [Dulcolax (bisacodyl)] 5 mg tablet,delayed release (DR/EC) 5 mg PO ONCE Qty: 4 0RF Rx Instructions: take per colonoscopy instructions polyethylene glycol 3350 17 gram/dose powder 238 g PO ONCE Qty: 238 0RF Rx Instructions: take per colonoscopy instructions bisacodyl [Dulcolax (bisacodyl)] 5 mg tablet,delayed release (DR/EC) 5 mg PO ONCE Qty: 4 0RF Rx Instructions: take per colonoscopy instructions Discharge Instructions Additional Instructions: 1. If tolerated, consume a soft, low fiber diet for 1-2 days. 2[address] Do not drive, drink alcohol, operate machinery, make critical decisions, or do activities that require coordination or balance for 24 hours. 3. Because air was put into your colon during the procedure, expelling air from your rectum (passing gas or farting) is normal. 4. You may not have a bowel movement for 1-3 days because of the colonoscopy prep. This is normal. 5. Go directly to the emergency room if you notice any of the following: Develop chills (warm to touch), or if you have a thermometer and your temperature is above 101 Difficulty breathing or difficultly swallowing Persistent vomiting Severe abdominal pain, other than gas cramps Severe chest pain Black, tarry stools Any bleeding ? exceeding one tablespoon 6. Call your physician if the site where your intravenous was started becomes red, swollen, painful, and warm to touch. 7. Your physician has reviewed your pre-procedure medications. Please continue to take those medications as previously ordered. You will be given specific information/education regarding any changes to your medications before leaving. Activity:: Activity as Tolerated Diet:: As Tolerated Discharge Orders Discharge Orders: Discharge Order (Routine); Ordered 03/28/23 Ordered By: Teresa Real DS: Diagnosis Discharge Diagnosis (1) Rectal bleeding: Status: Acute Asessment and Plan: Inocencio, we were able to complete your EGD and colonoscopy today without any difficulty. Your EGD showed a little bit of inflammation around the bottom portion of your stomach. This is an area called the pylorus. I performed multiple biopsies of the duodenum and stomach. You should continue to use Nexium to control your reflux. I will be in touch when I have the results of the biopsies. I found several polyps on your colonoscopy. An overwhelming majority of them were within your rectum. A few of these were quite large. I suspect that my final recommendation will be another colonoscopy in the next year. However, I do want to wait until I get the official report from the pathology before I make final recommendations.
--- NOTE | 2023-04-03 07:21 | W.COLOREPORT ---
Date of service: 04/03/23 Time of Service: 09:26 Colonoscopy Report Date of procedure: 04/03/23 Pre-op diagnosis general: Dyspepsia and hematochezia Post-op diagnosis procedure note: other (Gastritis, colorectal polyps, diverticulosis) Procedure: EGD and colonoscopy Surgeon: Edinson Patel Anesthesia Type: General:No Airway Estimated blood loss (mL): 20 Pathology: other (Biopsies of the duodenum, pylorus, gastric antrum, gastric body, and GE junction; multiple rectal polyps, polyp at 25 cm, polyp at 80 cm, polyp at 45 cm) Complications: None Disposition: same day Indications: Inocencio 62 years old, has recently been experiencing dyspepsia, and mild globus sensation. Is also had intermittent hematochezia. Prep: Miralax/Dulcolax Procedure Start Time: 07:37 Procedure End Time: 08:40 Retraction Time: 39 Findings: Mild pyloric inflammation, mild irregularity of GE junction at 45 cm. Multiple colorectal polyps, and rare diverticulosis. Procedure Description: After the initiation of monitored anesthetic care, and with the assistance of a bite block, I advanced a standard gastroscope through the mouth past the hypopharynx and into the esophagus.? Under the direct vision of the scope, I advanced down the esophagus into the stomach.? Once I entered the stomach, I performed a brief inspection, followed by retroflexion towards the gastric cardia.? This appeared normal.? After that, I gently advanced the scope around the incisura angularis and examined the pylorus.? Pylorus was mildly erythematous, and a bit thickened. I was able to navigate the endoscope through the pylorus into the duodenum. The duodenum appeared normal. I perform random biopsies of the duodenum before bringing the camera back into the stomach proper. Using cold forceps, I also biopsied the pyloric area, the gastric antrum, and gastric body. Next, I gently desufflated the stomach, and brought the camera back to the GE junction. The Z-line had some very mild irregularity, and the GE junction was at 45 cm. I performed biopsies here as well. Next we moved Inocencio into the left lateral decubitus position, I began by performing an external anorectal exam.? Perineum and skin were normal, as was the anal verge.? There was no evidence of external hemorrhoids.? Next, I performed a digital rectal exam.? I did not appreciate any abnormal findings.? Next, I advanced a colonoscope into the rectal vault.? I performed retroflexion.? There are grade 1 internal hemorrhoids.? I insufflated the rectum, and immediately encountered multiple rectal polyps. These were a mix of sessile, and pedunculated polyps. Majority of these were about 0.5 to 0.75 cm. I removed the polyps using combination of cold snare polypectomy, as well as cold forceps polypectomy. There was minimal bleeding from any of the sites. Around 25 cm from the anal verge I encountered a large pedunculated polyp. I removed this with energized snare polypectomy. There was minimal bleeding here as well. I then advanced the colonoscope beyond the rectal folds and into the sigmoid colon before advancing towards the cecum.? There were a few sigmoid diverticula. The quality of the prep was excellent.? The scope was noted to be in the cecum by identification of the ileocecal valve and appendiceal orifice.? I then began withdrawing the colonoscope using repeated irrigation as necessary for full evaluation of the colonic mucosa. Around 80 cm from the anal verge I identified a 0.5 cm polyp. ?It appeared sessile in character. ?I was able to remove this with a cold forcep polypectomy. ?I examined the site, and there was minimal bleeding. Similarly, I performed cold forcep polypectomy of another 0.25 cm sessile polyp at 40 cm from the anal verge. Once this was completed, I continued to withdraw the scope and examine the remainder of the colonic mucosa.?Once the scope was withdrawn to the level of the rectum, great care was taken to examine portions of the rectal folds.? Finally, the scope was withdrawn and the patient was brought to the same-day surgery recovery unit as the anesthetic wore off. ?The findings and instructions were shared with the patient prior to discharge.
--- NOTE | 2023-04-03 07:45 | BOWEL_PTH ---
PATIENT: Inocencio Diaz LOC: [facility] U#:[id number] AGE/SX: 62/M ROOM: RE04/03/[address]: Edinson Patel MD : [id number] BED: DIS: 04/03/2023 SPEC #: [id number] RECD: 04/03/23 12:57 STATUS: [facility] #: [id number] KIAN: 04/03/23 07:[address]: Edinson Patel DEPT: Surgical Specimen RECD BY: Bibi Perez ENTERED: 04/03/23 13:06 SP TYPE: Bowel OTHR DR: Nneka Chavarria Tissues: 1 - BIOPSY BOWEL 2 - STOMACH BIOPSY 3 - STOMACH BIOPSY 4 - STOMACH BIOPSY 5 - ESOPHAGUS BIOPSY 6 - BIOPSY BOWEL 7 - BIOPSY BOWEL 8 - BIOPSY BOWEL 9 - BIOPSY BOWEL 10 - BIOPSY BOWEL 11 - BIOPSY BOWEL 12 - BIOPSY BOWEL 13 - BIOPSY BOWEL 14 - BIOPSY BOWEL 15 - BIOPSY BOWEL 16 - BIOPSY BOWEL Procedures: GROSS AND MICRO LEVEL 4 Comments: [id number]
[2023-04-03 08:33] VITALS: BMI 29.8
[2023-04-03 08:42] VITALS: BP 108/60; PULSE 60; RESP 17; TEMP 36.6; O2SAT 95
[2023-04-03 09:15] VITALS: BP 112/70; PULSE 58; RESP 17; TEMP 36.6; O2SAT 96
--- NOTE | 2023-04-03 11:33 | W.ANESPOSTOP ---
Postoperative Evaluation Date, Time and Location Date Performed: 04/03/23 Time Performed: 11:33 Patient Location: Day Surgery Unit Vital Signs Most Recent Imported Vital Signs: Most Recent Vital Signs Temp Pulse Resp BP Pulse Ox 36.6 C 58 L 17 112/70 96 04/03/23 09:15 04/03/23 09:15 04/03/23 09:15 04/03/23 09:15 04/03/23 09:15 Pain Score Most Recent Pain Score: Most Recent Pain Score Pain Level 0 04/03/23 09:15 Assessment Mental Status: Awake (Alert & Oriented to Patient Baseline) Airway and Respiratory Function: Patent airway with normal (patient baseline) respiratory exam Cardiovascular Function: Hemodynamically Stable Hydration Status: Adequately Hydrated Nausea & Vomiting: No Nausea or Vomiting Pain: Pt. Denies Any Pain Peripheral Nerve Block: Patient did not receive a nerve block Postoperative Comments:: seen earlier today and doing well. appropriate for discharge
== END 2023-04-03 09:40 | disposition home or self-care (01) ==
PROVIDERS: PCP Nurse Practitioner Family; Visit Provider Surgery
PROC: (CPT 45385; principal; 2023-04-03 07:30)
DX: K62.5 Hemorrhage of anus and rectum (principal); K29.70 Gastritis, unspecified, without bleeding; D37.4 Neoplasm of uncertain behavior of colon; D12.8 Benign neoplasm of rectum; K57.30 Diverticulosis of large intestine without perforation or abscess without bleeding; E11.9 Type 2 diabetes mellitus without complications; K31.89 Other diseases of stomach and duodenum; K22.89 Other specified disease of esophagus; D12.4 Benign neoplasm of descending colon; D12.5 Benign neoplasm of sigmoid colon
CPT/HCPCS: 45385; 43239; 45380; 88305

== ENCOUNTER → 2023-04-19 11:22 | Outpatient (BNVA) | payer OTHER, SELFPAY | PROVIDERS: PCP Nurse Practitioner Family; Referring Provider Nurse Practitioner Family; Visit Provider Surgery | DX: K21.9 Gastro-esophageal reflux disease without esophagitis (principal) | CPT/HCPCS: 99213 ==

== ENCOUNTER → 2023-05-10 08:28 | Outpatient (BNVA) | payer OTHER, SELFPAY | PROVIDERS: PCP Nurse Practitioner Family; Referring Provider Nurse Practitioner Family; Visit Provider Surgery | DX: Z48.815 Encounter for surgical aftercare following surgery on the digestive system (principal) | CPT/HCPCS: 99214 ==

== ENCOUNTER 2023-05-17 10:33 | Outpatient (REF) | payer OTHER, SELFPAY ==
[2023-05-18 20:53] LABS: PSA, Screening 0.4 ng/mL (<=4.5)
== END 2023-05-17 10:34 | disposition home or self-care (01) ==
LOC: NCHCN 10:33
PROVIDERS: PCP Nurse Practitioner Family; Visit Provider Nurse Practitioner Family
DX: Z12.5 Encounter for screening for malignant neoplasm of prostate (principal)
CPT/HCPCS: 84153

== ENCOUNTER 2023-05-29 00:59 | Outpatient (CLI) | payer OTHER, SELFPAY ==
--- NOTE | 2023-05-29 | DI.US_ITS ---
Exam(s) US AAA DIAGNOSTIC EXAM: US AAA DIAGNOSTIC CLINICAL HISTORY: F/U AAA,? ENLARGING, i71.4 COMPARISON: US ABDOMEN ULTRASOUND (P) from 02/12/[address] RENAL COLIC WO from 01/17/2020 FINDINGS: There is again noted mild fusiform dilatation of the infrarenal lower abdominal aorta, exhibiting max imum diameter 3 cm is unchanged from the prior scan of December 2019. Also again noted is an element of arterial megaly of both common iliac arteries which both exhibit di ameters 2 cm, as was also present on the CT scan December 2019. IMPRESSION: 1. Stable size of the fusiform infrarenal abdominal aortic aneurysm, again exhibiting maximum diamete r 3 cm. 2. Stable size of the bilateral arteriomegaly of both common iliac arteries. These again exhibits di ameter 2 cm. DATA REPOSITORY:
== END 2023-05-29 01:19 ==
LOC: DI 00:59
PROVIDERS: PCP Nurse Practitioner Family; Visit Provider Nurse Practitioner Family
DX: I71.43 Infrarenal abdominal aortic aneurysm, without rupture (principal); I72.3 Aneurysm of iliac artery
CPT/HCPCS: 76775

== ENCOUNTER 2024-02-01 11:44 | Outpatient (REF) | payer OTHER, SELFPAY ==
[2024-02-01 15:47] LABS: ALT 32 U/L (16-63); AST 16 U/L (15-37); Anion Gap 13.4 mmol/L (3-11); BUN 9 mg/dL (7-18); CO2 24.6 mmol/L (21.0-32.0); CREATININE 1.4 mg/dL (0.70-1.30); Calcium 9.1 mg/dL (8.5-10.1); Chloride 99 mmol/L (98-107); Estimated GFR 56.13 (mL/min/1.73m2); Glucose 100 mg/dL (74-106); HDL Cholesterol 23 mg/dL (40-60); LDL CHOLESTEROL 104 mg/dL (<100); Potassium 3.9 mmol/L (3.5-5.1); Sodium 137 mmol/L (136-145)
[2024-02-01 16:09] LABS: Creatine Kinase 108 U/L (39-308)
== END 2024-02-01 11:45 | disposition home or self-care (01) ==
LOC: NCHCN 11:44
PROVIDERS: PCP Nurse Practitioner Family; Visit Provider Nurse Practitioner Family
DX: E78.5 Hyperlipidemia, unspecified (principal); K76.0 Fatty (change of) liver, not elsewhere classified; I10 Essential (primary) hypertension
CPT/HCPCS: 80048; 82550; 83721; 83718; 84450; 84460

== ENCOUNTER 2024-02-08 13:44 | Outpatient (REF) | payer OTHER, SELFPAY ==
[2024-02-08 17:27] LABS: Glucose 140 mg/dL (74-106); TSH (W/Ref FT4) 3.61 uIU/mL (0.36-3.74)
== END 2024-02-08 13:45 | disposition home or self-care (01) ==
LOC: NCHCN 13:44
PROVIDERS: PCP Nurse Practitioner Family; Visit Provider Nurse Practitioner Family
DX: R00.8 Other abnormalities of heart beat (principal)
CPT/HCPCS: 82947; 84443

== ENCOUNTER → 2024-03-05 04:06 | Outpatient (CLI) | payer OTHER, SELFPAY ==
--- NOTE | 2024-03-05 | DI.CTLCSR_ITS ---
Exam(s) CT CHEST LUNG CANCER SCREEN EXAM: CT CHEST LUNG CANCER SCREEN CLINICAL HISTORY: NICOTINE DEPENDENCE F17.210 SCREENING FOR LUNG CA TECHNIQUE: Imaging Protocol: Axial computed tomography images with coronal and sagittal reformatted images were created and reviewed COMPARISON: CT CT CHEST LUNG CANCER SCREEN from 10/08/[address] CHEST LUNG CANCER SCREEN from 12/14/[address] CHEST LUNG CANCER SCREEN from 02/06/2023 FINDINGS: Tracheobronchial tree: Patent where visualized. Pulmonary parenchyma: No consolidation or dominant measurable mass. No architectural distortion. Lung Nodules: None. Mediastinum and Chanda: No dominant adenopathy or fluid collection. There is mild thickening of the wal l of the distal esophagus. This may be due to underdistention but inflammation/infection cannot be e xcluded. Thyroid gland: Unremarkable. Lymph nodes: Unremarkable. Pleura: No effusion or pneumothorax. Heart: The heart is not dilated. Coronary artery calcifications are present. No pericardial effusion . Aorta: Thoracic aorta non-dilated.Atherosclerotic calcification is present. Upper abdomen: Status post cholecystectomy. Soft Tissues: Unremarkable. Bones: Within normal limits. IMPRESSION: 1. No pulmonary nodules. 2. Mild thickening of the wall of the distal esophagus. This may be due to underdistention but esoph agitis cannot be excluded. Please correlate clinically. Follow-up as clinically appropriate. This may include a barium swallow examination. Lung RADS Cat 1S - Negative: No nodules and definitely benign nodules. Other: Clinically Significant or Potentially Clinically Significant Findings (non lung cancer) Lung-RADS 1.0 CATEGORIES: Category 0 - Prior chest CT exam(s) being located for comparison. Category 1 - Annual screening in 12 months. No nodules or definitely benign nodules. Category 2 - Annual screening in 12 months. Benign appearance. Nodules with low likelihood of becomin g active cancer. Category 3 - 6-month follow-up. Probably benign. Short-term follow-up suggested. Nodules with low lik elihood of becoming active cancer. Category 4A - 3-month follow-up and CT/PET if >8 mm in size. Suspicious finding. Findings which requi re additional testing. Category 4B - Findings which require additional testing and tissue sampling. Suspicious finding. Category 4X - Category 3 or 4 nodules with additional features or imaging findings that increases the suspicion of malignancy. Modifier S- Potentially clinically significant finding. (Non lung cancer) Unexpected findings RADIATION DOSE DELIVERED: 96.95mGy.cm Total DLP 96.95mGy.cmTotal DLP DATA REPOSITORY: All CT scans at this facility are submitted to the National Radiology Data Registry (NRDR) Dose Index Registry (DIR) with the [employer] ([employer]). RADIATION OPTIMIZATION: All CT scans at this facility use at least one of these dose optimization te chniques: automated exposure control; mA and/or kV adjustment per patient size (includes targeted exa ms where dose is matched to clinical indication); or iterative reconstruction.
== END ==
PROVIDERS: PCP Nurse Practitioner Family; Visit Provider Nurse Practitioner Family
DX: F17.210 Nicotine dependence, cigarettes, uncomplicated (principal); Z12.2 Encounter for screening for malignant neoplasm of respiratory organs
CPT/HCPCS: 71271

== ENCOUNTER 2024-11-05 16:59 | Outpatient (REF) | payer MEDICARE, SELFPAY ==
[2024-11-05 16:29] LABS: Hemoglobin A1C 6.5 % (<5.7)
[2024-11-05 16:32] LABS: ALT 48 U/L (16-63); AST 25 U/L (15-37); Albumin 3.8 g/dL (3.4-5.0); Alkaline Phosphatase 91 U/L (46-116); Anion Gap 8.8 mmol/L (3-11); BUN 12 mg/dL (7-18); Bilirubin, Total 0.65 mg/dL (0.2-1.0); CO2 27.2 mmol/L (21.0-32.0); CREATININE 1.4 mg/dL (0.70-1.30); Calcium 9.1 mg/dL (8.5-10.1); Chloride 100 mmol/L (98-107); Cholesterol 151 mg/dL (<200); Estimated GFR 55.78 (mL/min/1.73m2); Glucose 150 mg/dL (74-106); HDL Cholesterol 23 mg/dL (40-60); Potassium 4.3 mmol/L (3.5-5.1); Sodium 136 mmol/L (136-145); Total Protein 7.3 g/dL (6.4-8.2); Triglyceride 503 mg/dL (<150)
[2024-11-05 16:44] LABS: LDL CHOLESTEROL 72 mg/dL (<100)
== END 2024-11-05 17:00 | disposition home or self-care (01) ==
LOC: NCHCN 16:59
PROVIDERS: PCP Physician Assistant Medical; Visit Provider Physician Assistant Medical
DX: E78.5 Hyperlipidemia, unspecified (principal); E11.9 Type 2 diabetes mellitus without complications
CPT/HCPCS: 80053; 80061; 83721; 83036

== ENCOUNTER 2025-02-18 11:43 | Outpatient (REF) | payer MEDICARE, SELFPAY ==
[2025-02-18 15:33] LABS: Hemoglobin A1C 6.6 % (<5.7)
[2025-02-18 15:45] LABS: ALT 84 U/L (16-63); AST 28 U/L (15-37); Alkaline Phosphatase 85 U/L (46-116); Anion Gap 9.7 mmol/L (3-11); BUN 10 mg/dL (7-18); CO2 27.3 mmol/L (21.0-32.0); CREATININE 1.3 mg/dL (0.70-1.30); Calcium 9.4 mg/dL (8.5-10.1); Calculated LDL 93 mg/dL (<100); Chloride 102 mmol/L (98-107); Cholesterol 182 mg/dL (<200); Estimated GFR 60.96 (mL/min/1.73m2); Glucose 109 mg/dL (74-106); HDL Cholesterol 30 mg/dL (>or=40); Potassium 4.1 mmol/L (3.5-5.1); Sodium 139 mmol/L (136-145); Total Protein 7.3 g/dL (6.4-8.2); Triglyceride 296 mg/dL (<150)
[2025-02-18 22:30] LABS: PSA, Screening 0.5 ng/mL (<=4.5)
== END 2025-02-18 11:44 | disposition home or self-care (01) ==
LOC: NCHCN 11:43
PROVIDERS: PCP Physician Assistant Medical; Visit Provider Physician Assistant Medical
DX: E78.5 Hyperlipidemia, unspecified (principal); E11.9 Type 2 diabetes mellitus without complications; Z12.5 Encounter for screening for malignant neoplasm of prostate; R35.0 Frequency of micturition
CPT/HCPCS: 80053; 80061; 84153; 83036; 87086

== ENCOUNTER 2025-04-08 15:27 | Outpatient (REF) | payer MEDICARE, SELFPAY ==
[2025-04-08 16:11] LABS: HCT 40.8 % (40.0-50.0); HGB 13.9 g/dL (13.5-17.5); MCH 30.1 pg (27.0-33.0); MCHC 34.1 % (32.0-36.0); MCV 88 fL (80-95); MPV 9.3 fL (8.0-11.0); Platelet Count 291 10^3/uL (130-400); RBC 4.62 10^6/uL (4.36-5.78); RDW 13.2 % (11.8-14.1); RDW-SD 42.8 fL; WBC 10.76 10^3/uL (4.4-10.8)
[2025-04-08 16:29] LABS: ALT 77 U/L (16-63); AST 29 U/L (15-37); Alkaline Phosphatase 81 U/L (46-116); Anion Gap 8.3 mmol/L (3-11); BUN 10 mg/dL (7-18); Bilirubin, Total 0.6 mg/dL (0.2-1.0); CO2 28.7 mmol/L (21.0-32.0); CREATININE 1.2 mg/dL (0.70-1.30); Calcium 9.1 mg/dL (8.5-10.1); Chloride 102 mmol/L (98-107); Estimated GFR 67.11 (mL/min/1.73m2); Glucose 170 mg/dL (74-106); Potassium 4.6 mmol/L (3.5-5.1); Sodium 139 mmol/L (136-145)
== END 2025-04-08 15:28 | disposition home or self-care (01) ==
LOC: NCHCN 15:27
PROVIDERS: PCP Physician Assistant Medical; Visit Provider Physician Assistant Medical
DX: Z01.818 Encounter for other preprocedural examination (principal)
CPT/HCPCS: 80053; 85027